=== PATIENT | male | born 1950 | race Two or more races ===

== ENCOUNTER 2021-04-27 05:41 | Emergency (ER) | payer OTHER, MEDICAID ==
[~2021-04-27] VITALS: Ht 167.6 cm; Wt 63.5 kg
[2021-04-27] MEDS ORDERED: SODIUM CHLORIDE 0.9% 1,000 ML IV ONE (06:30)
[2021-04-27] MEDS ORDERED: cloNIDine HCL 0.1 MG TAB PO ONE (06:30)
[2021-04-27 06:44] LABS: Basophils # (auto) 0 10 ^3/uL (0-0.2); Basophils % (auto) 0.6 % (0.0-2.0); Eosinophils # (auto) 0.2 10 ^3/uL (0-0.8); Eosinophils % (auto) 2.1 % (0.0-7.0); Hematocrit 42.8 % (41.0-53.0); Hemoglobin 14.4 g/dL (13.5-17.5); Lymphocytes # (auto) 1.6 10 ^3/uL (0.4-5.4); Lymphocytes % (auto) 20.9 % (10.0-50.0); Mean Corpuscular Hemoglobin 29.6 pg (28.0-32.0); Mean Corpuscular Hgb Conc. 33.6 g/dL (32.0-36.0); Mean Corpuscular Volume 88.1 fL (80.0-100.0); Monocytes # (auto) 0.8 10 ^3/uL (0-1.3); Monocytes % (auto) 10.8 % (0.0-12.0); Neutrophils # (auto) 4.9 10 ^3/uL (1.6-8.6); Neutrophils % (auto) 65.6 % (37.0-80.0); Red Blood Cells 4.86 10^6/uL (4.5-5.90); Red Cell Distribution Width 15.1 % (11.8-14.3); White Blood Cell 7.5 10^3/uL (4.4-10.8)
[2021-04-27 07:05] LABS: Chloride 109 mmol/L (98-107); Potassium 3.7 mmol/L (3.5-5.1); Sodium 142 mmol/L (136-145); Urine Bacteria FEW /hpf (None Seen); Urine Blood TRACE /uL (Negative); Urine Specific Gravity 1.011 (1.001-1.035); Urine WBC 5 /hpf (0 - 3)
[2021-04-27 07:18] LABS: Alanine Aminotransferase 32 U/L (16-61); Albumin 2.8 g/dL (3.4-5.0); Alkaline Phosphatase 100 U/L (45-117); Amphetamine Screen, Urine NEGATIVE (NEGATIVE); Anion Gap 6 (5-15); Aspartate Aminotransferase 26 U/L (15-37); BUN/Creatinine Ratio 16.9; Barbiturate Scree,Urine NEGATIVE (NEGATIVE); Benzodiazephine Screen, Urine NEGATIVE (NEGATIVE); Bilirubin, Total 0.3 mg/dL (0.2-1.0); Blood Urea Nitrogen 13 mg/dL (7-18); Cannabinoid Screen, Urine POSITIVE (NEGATIVE); Carbon Dioxide 27 mmol/L (21-32); Cocaine Screen, Urine NEGATIVE (NEGATIVE); GFR African American 129 mL/min; GFR Non-African American 107 mL/min; Glucose 100 mg/dL (74-106); Opiate Scree,Urine NEGATIVE (NEGATIVE); Phencyclidine Screen, Urine NEGATIVE (NEGATIVE)
[2021-04-27 08:22] VITALS: BP 131/77
== END 2021-04-27 08:45 | disposition home or self-care (01) ==
LOC: EDBD 05:41 → ER 05:41
DX: I10 Essential (primary) hypertension (principal); N39.0 Urinary tract infection, site not specified; F12.10 Cannabis abuse, uncomplicated; F15.10 Other stimulant abuse, uncomplicated; E46 Unspecified protein-calorie malnutrition; F17.210 Nicotine dependence, cigarettes, uncomplicated; Z68.22 Body mass index [BMI] 22.0-22.9, adult; Z88.0 Allergy status to penicillin
CPT/HCPCS: 36415; 71045; 80053; 80307; 81001; 83880; 84484; 85025; 93005; 96360; 99285; J7030

== ENCOUNTER 2021-07-27 13:05 | Emergency (ER) | payer OTHER, MEDICAID ==
[~2021-07-27] VITALS: Ht 167.6 cm; Wt 59.9 kg
[2021-07-27] MEDS ORDERED: amLODIPine BESYLATE 5 MG TAB PO ONE (13:45)
[2021-07-27 14:01] LABS: Basophils # (auto) 0.1 10 ^3/uL (0-0.2); Basophils % (auto) 1.1 % (0.0-2.0); Eosinophils # (auto) 0.1 10 ^3/uL (0-0.8); Eosinophils % (auto) 1.4 % (0.0-7.0); Hematocrit 46.4 % (41.0-53.0); Hemoglobin 15.7 g/dL (13.5-17.5); Lymphocytes # (auto) 1.9 10 ^3/uL (0.4-5.4); Lymphocytes % (auto) 20.7 % (10.0-50.0); Mean Corpuscular Hemoglobin 30.2 pg (28.0-32.0); Mean Corpuscular Hgb Conc. 33.9 g/dL (32.0-36.0); Monocytes # (auto) 0.9 10 ^3/uL (0-1.3); Monocytes % (auto) 9.9 % (0.0-12.0); Neutrophils # (auto) 6.2 10 ^3/uL (1.6-8.6); Neutrophils % (auto) 66.9 % (37.0-80.0); Red Blood Cells 5.21 10^6/uL (4.5-5.90); Red Cell Distribution Width 14.6 % (11.8-14.3); White Blood Cell 9.2 10^3/uL (4.4-10.8)
[2021-07-27 15:06] LABS: Chloride 106 mmol/L (98-107); Potassium 4.3 mmol/L (3.5-5.1); Sodium 136 mmol/L (136-145)
[2021-07-27 15:25] LABS: Alanine Aminotransferase 28 U/L (16-61); Albumin 3.1 g/dL (3.4-5.0); Alkaline Phosphatase 115 U/L (45-117); Anion Gap 6 (5-15); Aspartate Aminotransferase 29 U/L (15-37); BUN/Creatinine Ratio 15.7; Bilirubin, Total 0.3 mg/dL (0.2-1.0); Blood Urea Nitrogen 19 mg/dL (7-18); Calcium 8.5 mg/dL (8.5-10.1); Carbon Dioxide 24 mmol/L (21-32); GFR African American 76 mL/min; GFR Non-African American 63 mL/min; Glucose 102 mg/dL (74-106); Total Protein 7.9 g/dL (6.4-8.2)
[2021-07-27 16:26] LABS: Urine Bacteria NONE SEEN /hpf (None Seen); Urine Blood 1+ /uL (Negative); Urine Specific Gravity 1.016 (1.001-1.035); Urine WBC 4 /hpf (0 - 3)
[2021-07-27 23:40] VITALS: BP 125/73
== END 2021-07-27 23:58 | disposition home or self-care (01) ==
LOC: ER 13:05
DX: R90.0 Intracranial space-occupying lesion found on diagnostic imaging of central nervous system (principal); R91.8 Other nonspecific abnormal finding of lung field; R26.0 Ataxic gait; R29.6 Repeated falls; I10 Essential (primary) hypertension; F17.210 Nicotine dependence, cigarettes, uncomplicated; F12.10 Cannabis abuse, uncomplicated; F15.10 Other stimulant abuse, uncomplicated
CPT/HCPCS: 36415; 70450; 71045; 80053; 81001; 84484; 85025; 96365; 96366; 96367; 99285; J1953; J7060